=== PATIENT | male | born 1950 | race Caucasian/White ===

== ENCOUNTER 2024-12-10 17:06 | Emergency (ER) | payer MEDICAID, OTHER ==
[~2024-12-10] VITALS: Ht 175.3 cm; Wt 80.0 kg
[~2024-12-10 17:06] MED LIST: LEVO750T68 MT
[2024-12-10 17:10] VITALS: O2SAT 98
[2024-12-10 17:17] VITALS: TEMP 37.1
[2024-12-10 18:22] LABS: BASOPHILS % 0.6 % (0.0-2.0); EOSINOPHILS % 0.5 % (0.0-5.0); HEMATOCRIT. 48.8 % (42.0-52.0); HEMOGLOBIN. 15.9 g/dL (14.0-18.0); LYMPHOCYTES % 32.6 % (20.0-50.0); MEAN PLATELET VOLUME 9.0 fl (7.4-10.4); MONOCYTES % 3.1 % (2.0-8.0); NEUTROPHILS % 63.2 % (40.0-76.0); PLATELET 155 x1000/uL (130-400); RED BLOOD CELL COUNT 5.59 mill/uL (4.7-6.1); RED CELL DISTRIBUTION WIDTH 14.9 % (11.6-14.6)
[2024-12-10 18:32] LABS: CREATININE 1.1 mg/dL (0.6-1.3); UREA NITROGEN BLOOD 10 mg/dL (9-23)
[2024-12-10] MEDS: KETOROLAC 15MG/ML VIAL IV ONE (18:32)
[2024-12-10] MEDS: ONDANSETRON HCL 4MG/2ML INJ IV ONE (18:32)
[2024-12-10] MEDS: MORPHINE SULFATE 4 MG/ML INJ (FOR IV/IM USE) IV ONE (18:32)
[2024-12-10] MEDS: SODIUM CHLORIDE 0.9% 1,000 ML IV ONE (18:32)
[2024-12-10 18:34] LABS: ASPARTATE AMINOTRANSFERASE 11 IU/L (<34); BILIRUBIN DIRECT 0.4 mg/dL (<=3.0); BILIRUBIN TOTAL 1.1 mg/dL (0.1-1.0); PROTEIN TOTAL 6.4 g/dL (6.0-8.3); TROPONIN I HIGH SENSITIVITY 4 ng/L (3.0-53)
[2024-12-10 18:40] LABS: INR 1.0
[2024-12-10] MEDS ORDERED: ONDA4TAB50 MT (20:48)
[2024-12-10] MEDS: ONDANSETRON HCL 4MG/2ML INJ IV NR (21:20)
[2024-12-10 22:56] VITALS: BP 164/78; PULSE 55; RESP 15; O2SAT 100
== END 2024-12-10 22:55 | disposition home or self-care (01) ==
LOC: ER 17:06
DX: R10.13 Epigastric pain (principal); R11.2 Nausea with vomiting, unspecified; Z98.890 Other specified postprocedural states
CPT/HCPCS: 99285; 74176; 96374; 71045; 96361; 96375; 80076; 80048; 83690; 85025; 85610; 84484; 36415; 93005; 96376; J1885; J2405; J2270; J7030